=== PATIENT | male | born 1980 | race Caucasian/White ===

== ENCOUNTER 2020-10-01 20:26 | Emergency (ER) | payer OTHER, SELFPAY ==
[~2020-10-01] VITALS: Ht 175.3 cm; Wt 86.2 kg
[2020-10-01 20:30] VITALS: BP_SYST 152
--- NOTE | 2020-10-01 21:22 | NUR ---
pt placed in ed ureña bed 2 bed in lowest position both side rails up
--- NOTE | 2020-10-01 21:32 | NUR ---
ed md davis at bedside evaluating pt
[2020-10-01 21:38] LABS: BASOPHILS # (AUTO) 0.1 K/uL (0.0-0.2); BASOPHILS % (AUTO) 1.2 % (0.0-2.0); EOSINOPHILS # (AUTO) 0.1 K/uL (0.0-0.4); EOSINOPHILS % (AUTO) 1.7 % (0.0-4.0); HEMATOCRIT 31.1 % (36-54); HEMOGLOBIN 10.7 g/dL (14.0-18.0); LYMPHOCYTES # (AUTO) 0.9 K/uL (1.0-5.5); LYMPHOCYTES % (AUTO) 10.9 % (20.5-51.5); MEAN CORPUSCULAR HEMOGLOBIN 34 pg (27-31); MEAN CORPUSCULAR HGB CONC 34 % (32-36); MEAN CORPUSCULAR VOLUME 99 fL (79.0-98.0); MONOCYTES # (AUTO) 0.4 K/uL (0.0-1.0); MONOCYTES % (AUTO) 5.7 % (1.7-9.3); NEUTROPHILS # (AUTO) 6.3 K/uL (1.8-7.7); NEUTROPHILS % (AUTO) 80.5 % (40.0-70.0); PLATELET COUNT (AUTO) 365 K/uL (130-430); RED BLOOD CELL COUNT(AUTO) 3.12 MIL/uL (4.2-6.2); RED CELL DISTRIBUTION WIDTH 15.1 % (9.0-15.0); WHITE BLOOD COUNT (AUTO) 7.9 K/uL (4.8-10.8)
--- NOTE | 2020-10-01 21:53 | NUR ---
spoke with SISTER BRIAN
[2020-10-01 21:54] LABS: ANION GAP 9 (5-15); CALCIUM 8.3 mg/dL (8.4-11.0); CHLORIDE 93 mmol/L (98-107); CREATININE 1.52 mg/dL (0.55-1.30); POTASSIUM 4.2 mmol/L (3.5-5.1); SODIUM SERUM 129 mmol/L (136-145); UREA NITROGEN, BLOOD 16 mg/dL (8-21)
[2020-10-01 21:55] LABS: GFR AFRICAN AMERICAN 65 mL/min (>90); INR 1.1 (0.80-1.20)
[2020-10-01 22:09] LABS: ALANINE AMINOTRANSFERASE 48 U/L (12-78); ALBUMIN 3.3 g/dL (3.4-4.8); ALCOHOL, BLOOD 4 mg/dL (<10); ASPARTATE AMINOTRANSFERASE 84 U/L (10-37); FREE T4 (FREE THYROXINE) 0.2 ng/dl (0.8-1.5); THYROID STIMULATING HORMONE 108.76 uIu/mL (0.36-3.74); TOTAL BILIRUBIN 0.4 mg/dL (0.0-1.0)
[2020-10-01 22:12] LABS: ACETAMINOPHEN < 1 ug/mL (1-30)
--- NOTE | 2020-10-01 22:31 | NUR ---
received a call from lab stating they re ran the blood glucose which originally resulted at 346 at 2100. lab states after re running the lab the result is 98 at 2231. aware. pt was not medicated regarding orginal result because a fingerstick glucose resulted at 88 at 2107.
[2020-10-01 22:36] LABS: CKMB RELATIVE INDEX 2.3 (0.0-2.9); CREATINE KINASE MB 25.9 ng/mL (0-3.6); GLUCOSE 98 mg/dL (70-99)
[2020-10-01] MEDS: LEVOTHYROXINE SODIUM 0.125 MG TABLET PO ONE (23:41)
--- NOTE | 2020-10-02 00:04 | NUR ---
RT AT BEDSIDE PERFORMING ABG BLOOD DRAW
[2020-10-02] MEDS: LEVOTHYROXINE SODIUM 0.125 MG TABLET ONE (00:27)
[2020-10-02 00:35] LABS: BILIRUBIN,URINE NEGATIVE (NEGATIVE); BLOOD, URINE NEGATIVE (NEGATIVE); CLARITY/URINE CLEAR (CLEAR); COLOR,URINE YELLOW (YELLOW); GLUCOSE,URINE NEGATIVE (NEGATIVE); KETONES,URINE NEGATIVE (NEGATIVE); LEUKOCYTE ESTERASE ,URINE NEGATIVE (NEGATIVE); NITRITE, URINE NEGATIVE (NEGATIVE); PROTEIN URINE NEGATIVE (NEGATIVE); UROBILINOGEN,URINE 0.2 (0.2-1.0)
[2020-10-02 00:46] LABS: BARBITURATE, URINE NEGATIVE (NEG <=200); BENZODIAZEPINE, URINE NEGATIVE (NEG <=150); CANNABINOID, URINE NEGATIVE (NEG <=50); COCAINE, URINE NEGATIVE (NEG <=150); METHAMPHETAMINES SCREEN,URINE NEGATIVE (NEG <=500); OPIATE, URINE NEGATIVE (NEG <=100); PHENCYCLIDINE SCREEN,URINE NEGATIVE (NEG <=25); UR TRICYCLIC ANTIDEPRESSANTS NEGATIVE (NEG <=300); URINE AMPHETAMINE NEGATIVE (NEG <=500); URINE METHADONE NEGATIVE (NEG <=200); URINE OXYCODONE SCREEN NEGATIVE (NEG <=100); URINE PROPOXYPHENE SCREEN NEGATIVE (NEG <=300)
--- NOTE | 2020-10-02 01:03 | NUR ---
Patient given written and verbal discharge instructions and verbalizes understanding. ER MD SARKAR discussed with patient the results and treatment provided. Patient in stable condition. ID arm band removed. IV catheter removed intact and dressing applied, no active bleeding. Rx of DOXYCYCLINE given. Patient educated on pain management and to follow up with PMD. Pain Scale 0/10. Opportunity for questions provided and answered. Medication side effect fact sheet provided.
[2020-10-02 01:15] VITALS: BP_SYST 150
== END 2020-10-02 01:03 | disposition home or self-care (01) ==
LOC: SED 20:26
DX: U07.1 COVID-19 (principal); J18.9 Pneumonia, unspecified organism; E03.9 Hypothyroidism, unspecified
CPT/HCPCS: 36415; 36600; 70450; 71045; 76376; 80053; 80307; 81003; 82140; 82550; 82553; 82803; 82962; 84439; 84443; 84484; 85025; 85610; 85730; 87426; 93005; 99285; G0480; G0482